=== PATIENT | male | born 1965 | race Caucasian/White ===

== ENCOUNTER 2017-12-03 09:49 | Outpatient (CLI) | payer BC ==
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
== END 2017-12-03 09:50 | disposition home or self-care (01) ==
LOC: RAD-FRANK 09:49
PROVIDERS: ATTEND Nurse Practitioner Family
DX: J70.5 Respiratory conditions due to smoke inhalation (principal)
CPT/HCPCS: 71046

== ENCOUNTER 2020-05-14 09:56 | Outpatient (CLI) | payer BC ==
--- NOTE | 2020-05-14 12:37 | ULT ---
HEPATIC DUPLEX ULTRASOUND WITH COLOR AND SPECTRAL DOPPLER IMAGING: HISTORY: Elevated LFTs. FINDINGS: Coarse liver echogenicity, evidence for fatty change with some fatty sparing adjacent to the gallblad jose edaurdo. Gallbladder demonstrates no evidence for gallstones. No common duct dilatation. Pancreas and spleen regions appear unremarkable. Negative Saldana's sign. Common bile duct 0.4 cm. Hepatic venou s and portal venous flow is antegrade. IMPRESSION: Heterogeneous fatty change in the liver with some fatty sparing adjacent to the gallbladder. Antegra de hepatic and portal venous flow. POS: [facility]
== END 2020-05-14 09:57 | disposition home or self-care (01) ==
LOC: BICULT 09:56
PROVIDERS: ATTEND Nurse Practitioner Family
DX: R74.8 Abnormal levels of other serum enzymes (principal); K76.0 Fatty (change of) liver, not elsewhere classified
CPT/HCPCS: 76705

== ENCOUNTER 2021-06-15 08:38 | Outpatient (CLI) | payer BC | END 2021-06-15 08:39 | disposition home or self-care (01) | LOC: TBSIIMAG 08:38 | PROVIDERS: ATTEND Urology | DX: R97.20 Elevated prostate specific antigen [PSA] (principal); Z98.890 Other specified postprocedural states | CPT/HCPCS: 72197 ==